=== PATIENT | female | born 1995 | race Two or more races ===

== ENCOUNTER 2019-03-06 15:44 | Emergency (ER) | payer SELFPAY ==
[~2019-03-06] VITALS: Ht 160 cm; Wt 117.9 kg
[2019-03-06 17:07] LABS: Urine Bacteria NONE SEEN /hpf (None Seen); Urine Blood Negative /uL (Negative); Urine Mucus FEW (None Seen); Urine Specific Gravity 1.034 (1.001-1.035); Urine WBC 1 /hpf (0 - 5)
[2019-03-06 18:26] VITALS: BP 110/68
== END 2019-03-06 21:13 | disposition home or self-care (01) ==
LOC: EDBD 15:53 → ER 15:53
DX: O23.41 Unspecified infection of urinary tract in pregnancy, first trimester (principal); Z3A.01 Less than 8 weeks gestation of pregnancy
CPT/HCPCS: 36415; 81001; 81025; 84702

== ENCOUNTER 2019-03-12 06:37 | Emergency (ER) | payer MEDICAID, OTHER ==
[~2019-03-12] VITALS: Ht 160 cm; Wt 120.2 kg
[2019-03-12 08:09] LABS: Basophils # (auto) 0 uL; Basophils % (auto) 0.5 % (0.0-2.0); Eosinophils # (auto) 0.2 uL; Eosinophils % (auto) 1.9 % (0.0-7.0); Hematocrit 37.1 % (36.0-46.0); Hemoglobin 12.5 g/dL (12.2-16.2); Lymphocytes % (auto) 20.2 % (10.0-50.0); Mean Corpuscular Hemoglobin 27.9 pg (28.0-32.0); Mean Corpuscular Hgb Conc. 33.7 g/dL (32.0-36.0); Mean Corpuscular Volume 82.7 fL (80.0-100.0); Monocytes # (auto) 0.7 uL; Monocytes % (auto) 7.4 % (0.0-12.0); Neutrophils # (auto) 6.8 uL; Platelet Count (auto) 330 10^3/uL (140-450); Red Blood Cells 4.48 10^6/uL (4.0-5.20); Red Cell Distribution Width 14.1 % (11.8-14.3); White Blood Cell 9.7 10^3/uL (4.4-10.8)
[2019-03-12] MEDS ORDERED: SODIUM CHLORIDE 0.9% 1,000 ML IV ONE (08:21)
[2019-03-12 08:48] LABS: Calcium 8.8 mg/dL (8.5-10.1); Potassium 4.2 mmol/L (3.5-5.1)
[2019-03-12 08:50] LABS: BUN/Creatinine Ratio 23.5
[2019-03-12 08:53] LABS: Bilirubin, Total 0.2 mg/dL (0.2-1.0); Total Protein 6.9 g/dL (6.4-8.2)
[2019-03-12 09:33] LABS: Urine Bacteria NONE SEEN /hpf (None Seen); Urine Blood 3+ /uL (Negative); Urine Mucus FEW (None Seen); Urine WBC 79 /hpf (0 - 5)
[2019-03-12 10:00] VITALS: BP 120/38
== END 2019-03-12 12:08 | disposition home or self-care (01) ==
LOC: ER 06:40
DX: O23.41 Unspecified infection of urinary tract in pregnancy, first trimester (principal); Z3A.01 Less than 8 weeks gestation of pregnancy; Z90.49 Acquired absence of other specified parts of digestive tract
CPT/HCPCS: 36415; 76801; 80053; 81001; 84702; 85025

== ENCOUNTER 2019-03-14 15:36 | Emergency (ER) | payer MEDICAID ==
[~2019-03-14] VITALS: Ht 160 cm; Wt 120.2 kg
[2019-03-14 15:46] VITALS: BP 97/59
[2019-03-14] MEDS ORDERED: ACETAMINOPHEN 500 MG TAB PO ONE (16:45)
[2019-03-14] MEDS ORDERED: cefTRIAXone SOD 1,000 MG VL IM ONE (16:45)
== END 2019-03-14 17:37 | disposition home or self-care (01) ==
LOC: ER 15:47
DX: J03.90 Acute tonsillitis, unspecified (principal); Z90.49 Acquired absence of other specified parts of digestive tract
CPT/HCPCS: 81002; 96372; 99283; J0696

== ENCOUNTER 2019-03-15 18:15 | Inpatient (IN) | payer MEDICAID, OTHER ==
[~2019-03-15] VITALS: Ht 160 cm; Wt 123.0 kg
[2019-03-15 20:37] LABS: Basophils # (auto) 0 uL; Basophils % (auto) 0.5 % (0.0-2.0); Eosinophils # (auto) 0.1 uL; Eosinophils % (auto) 1.6 % (0.0-7.0); Hemoglobin 13.8 g/dL (12.2-16.2); Lymphocytes # (auto) 1.9 uL; Lymphocytes % (auto) 26.7 % (10.0-50.0); Mean Corpuscular Hemoglobin 27.9 pg (28.0-32.0); Mean Corpuscular Hgb Conc. 33.7 g/dL (32.0-36.0); Monocytes # (auto) 0.7 uL; Monocytes % (auto) 9.8 % (0.0-12.0); Neutrophils # (auto) 4.5 uL; Neutrophils % (auto) 61.4 % (37.0-80.0); Nucleated Red Blood Cells % 0.1 %; Platelet Count (auto) 309 10^3/uL (140-450); Red Blood Cells 4.94 10^6/uL (4.0-5.20); Red Cell Distribution Width 14.1 % (11.8-14.3); White Blood Cell 7.3 10^3/uL (4.4-10.8)
[2019-03-15 20:53] LABS: Albumin 3.5 g/dL (3.4-5.0); Calcium 8.7 mg/dL (8.5-10.1)
[2019-03-15 20:56] LABS: BUN/Creatinine Ratio 19.7; Bilirubin, Total 0.2 mg/dL (0.2-1.0)
[2019-03-16] MEDS ORDERED: ONDANSETRON HCL 4 MG/2 ML VIAL IV ONE (02:15)
[2019-03-16] MEDS ORDERED: HYDROmorphone HCL 2 MG/ML VL IV ONE (02:15)
[2019-03-16] MEDS ORDERED: ceFAZolin 1GM/50ML 50 ML IV ONE (03:30)
[2019-03-16] MEDS ORDERED: LACTATED RINGER'S 1,000 ML IV ONE (03:30)
[2019-03-16 04:26] LABS: INR 1.05 (0.9-1.15); Partial Thromboplastin Time 33.1 sec (23.64-32.05)
[2019-03-16] MEDS ORDERED: SUCCINYLCHOLINE CHLORIDE 20 MG/ML 10ML VIAL IV ONE (04:37)
[2019-03-16] MEDS ORDERED: MIDAZOLAM HCL 1MG/1ML-2 ML VIAL ONE (04:40)
[2019-03-16] MEDS ORDERED: ROCURONIUM 10MG/ML 10ML VIAL IV ONE (04:40)
[2019-03-16] MEDS ORDERED: PROPOFOL 10 MG/ML 20 ML IV ONE (04:41)
[2019-03-16] MEDS ORDERED: fentaNYL CITRATE 5 ML ONE (04:42)
[2019-03-16] MEDS ORDERED: ONDANSETRON HCL 4 MG/2 ML VIAL IV PRN ×2 (05:45→06:15)
[2019-03-16] MEDS ORDERED: MORPHINE SULFATE 4 MG/ML SYR/VIAL IV PRN (05:45)
[2019-03-16] MEDS: LACTATED RINGER'S 1,000 ML IV SCH ×3 (06:06→19:00)
[2019-03-16] MEDS ORDERED: hydrALAZINE HCL 20 MG/ML VL IV PRN (06:15)
[2019-03-16] MEDS ORDERED: HYDROmorphone HCL 2 MG/ML VL IV PRN (06:15)
[2019-03-16] MEDS ORDERED: ePHEDrine SULFATE 50 MG/ML AMP IV PRN (06:15)
[2019-03-16] MEDS ORDERED: HYDROmorphone HCL 2 MG/ML VL ONE (06:19)
[2019-03-16] MEDS: HYDROmorphone HCL 2 MG/ML VL IV PRN ×3 (06:20→06:42)
--- NOTE | 2019-03-16 07:25 | NUR ---
ADMIT PATIENT ADMITTED FROM [facility].. AR RECEIVED FROM JOSAFAT HAWK. ALL QUESTIONS/CONCERNS ANSWERED. PATIENT ON 2 LN/C CONTINUOUS PULSE OX O2 @ 99%. PATIENT HAS HOGUE FREE TO GRAVITY, PATENT, NO KINKS DRAINING CLEAR YELLOW. DRESSING PLACED TO ABDOMEN, C/D/I. ABD BINDER IN PLACE. SCDS PLACED BLE. PATIENT EDUCATED ON INCENTIVE SPIROMETER, RETURNED DEMONSTRATION. BED IN LOWEST/LOCKED POSITION, BED RAILS UP X2, CALL LIGHT WITHIN REACH. PATIENT ALERT, AWAKE AND ORIENTED, UPDATED ON POC. WILL CONTINUE TO MONITOR Q1H AND PRN.
[2019-03-16 09:00] VITALS: BP 108/64
[2019-03-16 13:00] VITALS: BP 122/78
[2019-03-16] MEDS: ceFAZolin 1GM/50ML 50 ML IV SCH ×3 (13:26→21:15)
[2019-03-16] MEDS: MORPHINE SULF INJ 2 MG/ML SYRINGE 1ML IV PRN ×3 (13:26→22:19)
--- NOTE | 2019-03-16 13:50 | NUR ---
MD CALL CALLED DR COMBS RE: PATIENT STATING "SHE'S HUNGRY." PER PATIENT OK TO HAVE ICE CHIPS AND IF PATIENT TOLERATES, CLEAR LIQUID DIET MAY BE STARTED 2100. WILL CONTINUE TO MONITOR
[2019-03-16 17:03] VITALS: BP 116/73
--- NOTE | 2019-03-16 20:00 | NUR ---
Opening Shift Note Assumed care of patient, awake and alert. Dressing assessed and slight drainage noted underneath abdominal pad. Abdominal binder in place and no further bleeding noted from groin area. Patient states pain but pain medicine is not yet available. Pain medicine will be administered when available. Instructed on POC and to call for assist PRN, will continue to monitor for changes Q1hr and PRN.
[2019-03-16 20:14] LABS: Basophils # (auto) 0 uL; Basophils % (auto) 0.1 % (0.0-2.0); Eosinophils # (auto) 0 uL; Eosinophils % (auto) 0.3 % (0.0-7.0); Hematocrit 34.7 % (36.0-46.0); Hemoglobin 11.6 g/dL (12.2-16.2); Lymphocytes # (auto) 2.3 uL; Lymphocytes % (auto) 27.9 % (10.0-50.0); Mean Corpuscular Hemoglobin 27.8 pg (28.0-32.0); Mean Corpuscular Hgb Conc. 33.4 g/dL (32.0-36.0); Mean Corpuscular Volume 83.2 fL (80.0-100.0); Monocytes # (auto) 0.7 uL; Monocytes % (auto) 8.8 % (0.0-12.0); Neutrophils # (auto) 5.2 uL; Neutrophils % (auto) 62.9 % (37.0-80.0); Platelet Count (auto) 268 10^3/uL (140-450); Red Blood Cells 4.17 10^6/uL (4.0-5.20); Red Cell Distribution Width 14.2 % (11.8-14.3); White Blood Cell 8.2 10^3/uL (4.4-10.8)
[2019-03-16 22:00] VITALS: BP 120/68
[2019-03-17] MEDS: LACTATED RINGER'S 1,000 ML IV SCH ×3 (01:40→21:41)
[2019-03-17] MEDS: MORPHINE SULF INJ 2 MG/ML SYRINGE 1ML IV PRN ×2 (02:22→06:31)
--- NOTE | 2019-03-17 03:39 | NUR ---
PATIENT RUNNING TEMP OF 101 COOLING MEASURES APPLIED. TEMP RECHECK SHOWED A NEW TEMP OF 98. PATIENT SHOWING NO SIGN OF DISTRESS, SHORTNESS OF BREATH, AND PATIENT DENIES ANY PAIN AT THIS TIME. WILL CONTINUE TO MONITOR.
[2019-03-17 05:00] VITALS: BP 118/72
[2019-03-17] MEDS: ceFAZolin 1GM/50ML 50 ML IV SCH ×3 (05:23→21:37)
[2019-03-17 06:04] LABS: Basophils # (auto) 0 uL; Basophils % (auto) 0.3 % (0.0-2.0); Eosinophils # (auto) 0 uL; Eosinophils % (auto) 0.3 % (0.0-7.0); Hematocrit 33.4 % (36.0-46.0); Hemoglobin 11.1 g/dL (12.2-16.2); Lymphocytes # (auto) 2.6 uL; Lymphocytes % (auto) 30.1 % (10.0-50.0); Mean Corpuscular Hemoglobin 27.6 pg (28.0-32.0); Mean Corpuscular Hgb Conc. 33.2 g/dL (32.0-36.0); Mean Corpuscular Volume 83.1 fL (80.0-100.0); Monocytes # (auto) 0.9 uL; Monocytes % (auto) 10.1 % (0.0-12.0); Neutrophils # (auto) 5.1 uL; Neutrophils % (auto) 59.2 % (37.0-80.0); Nucleated Red Blood Cells % 0.1 %; Platelet Count (auto) 271 10^3/uL (140-450); Red Blood Cells 4.02 10^6/uL (4.0-5.20); White Blood Cell 8.7 10^3/uL (4.4-10.8)
--- NOTE | 2019-03-17 06:40 | NUR ---
Respiratory note: ROUTINE PULSE OX CHECK DONE. HR 91, RR 16, POX 98% ON 2L NC, BREATH SOUNDS ARE CLEAR. NO SOB OR DISTRESS NOTED.
[2019-03-17] MEDS ORDERED: BISACODYL 10 MG RECT SUPP PR PRN (07:45)
[2019-03-17] MEDS ORDERED: HYDROcodone-ACET 10/325MG TAB PO PRN (07:45)
[2019-03-17] MEDS ORDERED: RHO (D) IMMUNE GLOBULIN 300 MCG INJ IM PRN (07:45)
--- NOTE | 2019-03-17 08:00 | NUR ---
Opening Shift Note Assumed care of patient, awake, alert and oriented X4. No S/S of distress/SOB, complains of lower medial abdominal pain, 8/10, medicated with prescribed pain medication. IV to left antecubital, 18 gauge, patent and infusing LR @ 70 ml/hr. Suprapubic incision with dressing clean, dry and intact, abdominal binder in place. Urethral Murphy catheter draining clear, yellow urine to gravity. Bilateral lower extremity SCD's in place. IS at bedside, patient instructed on importance of use, verbalized understanding and correct return demonstration provided. Instructed on POC and to call for assist PRN, verbalized understanding. Bed locked, in lowest position, call light within reach, will continue to monitor for changes Q1hr and PRN.
--- NOTE | 2019-03-17 08:00 | NUR ---
ROUNDS Dr Upton at bedside for rounds, new orders received and followed through. Patient updated on plan of care, verbalized understanding.
[2019-03-17] MEDS: SIMETHICONE 80 MG CHEWABLE TABLET PO SCH ×3 (08:36→21:38)
[2019-03-17] MEDS: HYDROcodone-ACET 10/325MG TAB PO PRN ×2 (08:37→21:06)
[2019-03-17 09:00] VITALS: BP 115/69
--- NOTE | 2019-03-17 09:10 | NUR ---
Booker catheter dc'd Order to discontinue booker catheter. Booker dc'd with clean technique following deflation of balloon. Patient was in pain with booker in, patient tolerated well with no complaints of pain after removal. Tip in tact. Continue to monitor care.
[2019-03-17] MEDS ORDERED: DOCUSATE CALCIUM 240 MG CAP PO SCH (10:00)
[2019-03-17] MEDS ORDERED: DOCUSATE SOD 100 MG CAP PO SCH (10:00)
[2019-03-17 13:00] VITALS: BP 134/73
[2019-03-17 17:00] VITALS: BP 124/76
--- NOTE | 2019-03-17 19:34 | NUR ---
Care endorsed to JOSAFAT Bernard, night nurse.
[2019-03-17 20:28] VITALS: BP 124/76
--- NOTE | 2019-03-17 20:56 | NUR ---
Respiratory note: AT BEDSIDE FOR O2 CHECK. BS CLEAR, POX 97-98% ON 2LPM NC. HR IN 90S. WILL CONTINUE TO MONITOR NEEDED.
[2019-03-17] MEDS: DOCUSATE SOD 100 MG CAP PO PRN (21:38)
[2019-03-17 22:00] VITALS: BP 132/79
[2019-03-18 05:00] VITALS: BP 108/63
[2019-03-18] MEDS: SIMETHICONE 80 MG CHEWABLE TABLET PO SCH ×4 (05:56→21:50)
[2019-03-18] MEDS: ceFAZolin 1GM/50ML 50 ML IV SCH ×3 (05:56→21:50)
--- NOTE | 2019-03-18 07:22 | NUR ---
CLOSING NOTES ENDORSED CARE TO DAY SHIFT NURSEGEOVANI.
--- NOTE | 2019-03-18 07:30 | NUR ---
DR COMBS ROUNDING. PER DR COMBS IF PATIENT PASSES GAS MAY ADVANCE DIET TO SOFT.
[2019-03-18 08:00] VITALS: BP 124/74
[2019-03-18 09:00] VITALS: BP 124/74
[2019-03-18] MEDS: LACTATED RINGER'S 1,000 ML IV SCH (11:59)
--- NOTE | 2019-03-18 12:42 | NUR ---
Nutrition Assessment Notes please see attached link for complete assessment Est. Needs based on ABW (87 kg):5776-1094 kcal (17-20 kcal/kgBW), 87-95 gms pro (1.0-1.1 gms/kgBW). Will continue to monitor pertinent labs and reassess nutrient need prn Addendum: 03/18/19 at [address] Amended: Links added.
[2019-03-18] MEDS: HYDROcodone-ACET 10/325MG TAB PO PRN ×2 (12:58→22:25)
[2019-03-18 13:00] VITALS: BP 124/74
[2019-03-18 17:00] VITALS: BP 124/65
--- NOTE | 2019-03-18 19:29 | NUR ---
Opening Shift Note RECEIVED REPORT FROM DAY SHIFT NURSEGEOVANI. ASSUMED CARE OF PATIENT. PT IS AWAKE, ALERT, ORIENTATED X 4. NO S/S OF DISTRESS/SOB NOR PAIN. BED IS IN LOWEST POSITION WITH SIDE RAILS UP X 2. BED BRAKES ARE LOCKED AND CALL LIGHT IS WITH IN REACH. HOB IS 30 DEGREES. INSTRUCTED ON POC AND TO CALL FRO ASSIST PRN, WILL CONTINUE TO MONITOR FOR CHANGES Q1HR AND PRN.
[2019-03-18] MEDS: DOCUSATE SOD 100 MG CAP PO PRN (21:50)
[2019-03-18 22:37] VITALS: BP 130/85
[2019-03-19] MEDS: LACTATED RINGER'S 1,000 ML IV SCH (02:17)
[2019-03-19 05:35] VITALS: BP 110/69
[2019-03-19] MEDS: ceFAZolin 1GM/50ML 50 ML IV SCH (05:35)
[2019-03-19] MEDS: SIMETHICONE 80 MG CHEWABLE TABLET PO SCH (05:35)
--- NOTE | 2019-03-19 06:06 | NUR ---
Respiratory note: PT IS RESTING COMFORTABLY. NO RESPIRATORY DISTRESS NOTED. SPO2 96-98% ON RA, HR 78, RR 18, BS CLEAR BILATERALLY. PT INFORMED TO PUSH CALL BUTTON IF INCREASED WOB, SOB, OR WHEEZING OCCURS.
--- NOTE | 2019-03-19 07:07 | NUR ---
CLOSING NOTES ENDORSED CARE TO DAY SHIFT NURSEGEOVANI.
[2019-03-19 08:00] VITALS: BP 121/76
[2019-03-19 09:00] VITALS: BP 121/76
--- NOTE | 2019-03-19 12:37 | NUR ---
Discharge instructions given as ordered. Encourage to follow up with PMD as instructed. All questions and concerns addressed. Patient verbalized understanding. Medication reconciliation form completed and copy given to patient. No Home medications held in Pharmacy and none to be returned to patient, and no needed vaccines given. IV removed with catheter intact, pressure dressing applied. Patient ambulated to vehicle via wheelchair with all personal belongings, accompanied by staff and family member. No distress noted at time of departure.
== END 2019-03-19 12:00 | disposition home or self-care (01) | DRG 817 ==
LOC: ER 18:15 → OVERFLOW 18:16 → TELE-CENTR 03-16 07:56 → CENTRAL 03-16 21:18
PROVIDERS: ADMIT Obstetrics & Gynecology; ATTEND Obstetrics & Gynecology
PROC: 10T20ZZ Resection of Products of Conception, Ectopic, Open Approach (ICD-10-PCS; 2019-03-16)
PROC: 0UC50ZZ Extirpation of Matter from Right Fallopian Tube, Open Approach (ICD-10-PCS; 2019-03-16)
PROC: 0UB50ZZ Excision of Right Fallopian Tube, Open Approach (ICD-10-PCS; principal; 2019-03-16 04:33)
DX: O00.101 Right tubal pregnancy without intrauterine pregnancy (principal); K66.1 Hemoperitoneum; Z90.49 Acquired absence of other specified parts of digestive tract; O99.211 Obesity complicating pregnancy, first trimester; E66.01 Morbid (severe) obesity due to excess calories
CPT/HCPCS: 36415; 76801; 80053; 81001; 81025; 84702; 85025; 85610; 85730; 86850; 86900; 86901; 94760; 94762; 96361; 96374; 96375; G0378; J0330; J0690; J2250; J2405; J2704